=== PATIENT | female | born 1950 | race Caucasian/White ===

== ENCOUNTER 2023-11-18 11:13 | Emergency (ER) | payer OTHER, SELFPAY ==
[2023-11-18 11:26] VITALS: BP 131/77
[2023-11-18 11:47] LABS: % Basophils 0.7 % (0-2); % Eosinophils 0.8 % (0-6); % Immature Granulocytes 0.2 % (0-0.5); % Lymphocytes 27.8 % (20.5-51.1); % Monocytes 9.1 % (1.7-9.3); % Neutrophils 61.4 % (42.2-75.2); Absolute Eosinophils 0.1 10^3/uL (0-0.7); Absolute Lymphocytes 1.7 10^3/uL (1.2-3.4); Absolute Monocytes 0.6 10^3/uL (0.1-0.6); Absolute Neutrophils 3.8 10^3/uL (1.4-6.5); Hematocrit 47.5 % (37.0-47.0); Hemoglobin 17.3 g/dL (12.0-16.0); Mean Corp Hgb Conc. 36.4 g/dL (33.0-37.0); Mean Corpuscular Hgb 30.8 pg (27.0-31.0); Mean Corpuscular Volume 84.7 fL (81.0-99.0); Mean Platelet Volume 9.8 fL (7.4-10.4); Nucleated Red Blood Cells % 0 %; Platelet Count 373 10^3/uL (130-400); Red Blood Cell Count 5.61 10^6/uL (4.20-5.40); Red Cell Dist. Width 12.1 % (11.5-14.5); White Blood Cell Count 6.2 10^3/uL (4.8-10.8)
[2023-11-18 11:52] LABS: Urine Albumin Negative (Neg - Trace); Urine Bilirubin Negative (Negative); Urine Character Clear (Clear); Urine Color Yellow; Urine Glucose Negative (Negative); Urine Ketone Negative (Negative); Urine Leukocyte Negative (Negative); Urine Nitrite Negative (Negative); Urine Occult Blood 3+ (Negative); Urine Urobilinogen Negative (Neg - 1+); Urine pH 6.5 (5.0-9.0)
[2023-11-18 12:00] LABS: Lactic Acid 1.2 mmol/L (0.7-2.0)
[2023-11-18 12:01] LABS: ALT (SGPT) 31 U/L (0-35); AST (SGOT) 28 U/L (14-36); Alkaline Phosphatase 85 U/L (38-126); Blood Urea Nitrogen 18 mg/dl (7-17); Calcium 9.9 mg/dl (8.4-10.2); Carbon Dioxide 27 mmol/L (22-30); Chloride 91 mmol/L (98-107); Glucose 97 mg/dl (70-99); Potassium 3.9 mmol/L (3.5-5.1); Sodium 127 mmol/L (135-145); Total Bilirubin 1.4 mg/dl (0.2-1.3); eGFR > 60.00
[2023-11-18 12:02] LABS: Urine Squamous Cell 16-20 /LPF (Few)
[2023-11-18 12:03] LABS: Urine White Cell 0-2 /HPF (0-5)
[2023-11-18 12:04] LABS: Urine Bacteria Few (Negative)
--- NOTE | 2023-11-18 13:05 | ED.GENMED ---
History of Present Illness
<DAIANA Meraz - Last Filed: 11/20/23 01:39>
General
Chief Complaint: Urinary Symptoms
Source: patient
Time Seen by Provider: 11/18/23 13:02
Nursing documentation reviewed up to this point in time: agreed with
Travel History
Have you had any contact with someone who has COVID-19?: No
Do you have any symptoms of coronavirus? Fever > 100 degrees, chills, cough, shortness of breath, sore throat, loss of taste or smell, muscle aches, or headache?: No
History of Present Illness
History of Present Illness:
73 female presents to the ER with persistent urinary frequency urgency and lower abdominal pressure. Symptoms started on Sunday. She was in [place] at the time. She was started on Bactrim by urgent care however symptoms persisted and on
Sunday, 5 days ago went to a local ER in [place] however her urine was found to be negative at the time. She went back to another urgent care on 3 days ago and was started on Macrobid. She presents to the ER today with persistent
symptoms of pressure frequency urgency. She denies any fevers though she has nauseous with this. She denies any back pain. She does have a history of intermittent constipation but moved her bowels yesterday. She reports she is very anxious over
her symptoms.
Past History
<DAIANA Meraz - Last Filed: 11/20/23 01:39>
Past History
ED Past Medical History: HTN, Hypercholesterolemia and Hypothyroidism
ED Past Surgical History: Cholecystectomy and Gynecological (hysterectomy)
Social History
Personal:
Living: with family
Review of Systems
<DAIANA Meraz - Last Filed: 11/20/23 01:39>
Review of Systems
Allergies reviewed?: Yes
All Other Systems: ROS reviewed and negative except as documented in HPI and ROS
Constitutional: Reports no symptoms
Respiratory: Reports no symptoms
Cardiac: Reports no symptoms
ABD/GI: Reports abdominal pain and nausea; Denies vomiting or diarrhea
: Reports frequency and urgency
Musculoskeletal: Reports no symptoms; Denies back pain
Skin: Reports no symptoms
Hematologic/Lymphatic: Reports no symptoms
Psychiatric: Reports no symptoms
Phy Exam
<DAIANA Meraz - Last Filed: 11/20/23 01:39>
General Physical Exam
General Presentation: no apparent distress
General age: appears stated age
General Skin: warm and dry
General Habitus: normal
General Mental: alert
General Hydration: appears well hydrated
Gastrointestinal Exam
Gastrointestinal Exam: other (tenderness to suprapubic region )
Neurological Exam
Neurological Exam: alert and oriented x3
Musculoskeletal Exam
Musculoskeletal Exam: full ROM
Skin Exam
Skin Exam: normal color and warm/dry
Psychiatric Exam
Psychiatric Exam: normal mood/affect
Course
<DAIANA Meraz - Last Filed: 11/20/23 01:39>
Orders/Labs/Results
Orders:
Orders
11/18/23 11:37
Complete Blood Count/With Diff Urgent
Comprehensive Metabolic Panel Urgent
Lactic Acid Urgent
Urinalysis Reflex To Culture Urgent
Date Specimen was Collected: 11/18/23
Time Specimen was Collected: 11:28
Urine Microscopic Reflex Cult Urgent
Blood Culture Q30M
DOM Source: Blood/Venous
Specimen Description:
Comment: FROM 2 SEPARATE SITES
11/18/23 13:29
Blood Culture Q30M
DOM Source: Blood/Venous
Specimen Description:
Comment: FROM 2 SEPARATE SITES
11/18/23 14:05
IV Insert/Care/Rem.- Treatment PRN
11/18/23 14:11
CT Abd/Pel (IV only)-[facility] only Urgent
Comment:
Reason For Exam: lower abd pain tenderness/pain
11/18/23 17:50
Amoxicillin 875 mg/Clav 125 mg [Augmentin 875 mg/125 mg] 1 tablet PO NOW STA
Abnormal Lab Results
11/18/23
11:37
RBC 5.61 H 10^6/uL
(4.20-5.40)
Hgb 17.3 H g/dL
(12.0-16.0)
Hct 47.5 H %
(37.0-47.0)
Sodium 127 L mmol/L
(135-145)
Chloride 91 L mmol/L
(98-107)
BUN 18 H mg/dl
(7-17)
Total Bilirubin 1.4 H mg/dl
(0.2-1.3)
Ur Occult Blood Reflex 3+ A
(Negative)
Urine RBC 3-6 A /HPF
(0-2)
Urine Bacteria (Reflex) Few A
(Negative)
11/18/23 11:37
11/18/23 11:37
Vital Signs
Initial and Last Documented VS:
Initial Vital Signs
Temp Pulse Resp BP Pulse Ox
99.3 F 71 17 131/77 99
11/18/23 11:26 11/18/23 11:26 11/18/23 11:26 11/18/23 11:26 11/18/23 11:26
Last Documented Vital Signs
Temp Pulse Resp BP Pulse Ox
97.5 F 69 17 152/68 99
11/18/23 16:30 11/18/23 16:30 11/18/23 11:26 11/18/23 17:00 11/18/23 16:30
<Aleksandar Rubio Jr., PA-C - Last Filed: 11/20/23 17:54>
Orders/Labs/Results
Orders:
Orders
11/18/23 11:37
Complete Blood Count/With Diff Urgent
Comprehensive Metabolic Panel Urgent
Lactic Acid Urgent
Urinalysis Reflex To Culture Urgent
Date Specimen was Collected: 11/18/23
Time Specimen was Collected: 11:28
Urine Microscopic Reflex Cult Urgent
Blood Culture Q30M
DOM Source: Blood/Venous
Specimen Description:
Comment: FROM 2 SEPARATE SITES
11/18/23 13:29
Blood Culture Q30M
DOM Source: Blood/Venous
Specimen Description:
Comment: FROM 2 SEPARATE SITES
11/18/23 14:05
IV Insert/Care/Rem.- Treatment PRN
11/18/23 14:11
CT Abd/Pel (IV only)-[facility] only Urgent
Comment:
Reason For Exam: lower abd pain tenderness/pain
11/18/23 17:50
Amoxicillin 875 mg/Clav 125 mg [Augmentin 875 mg/125 mg] 1 tablet PO NOW STA
Abnormal Lab Results
11/18/23
11:37
RBC 5.61 H 10^6/uL
(4.20-5.40)
Hgb 17.3 H g/dL
(12.0-16.0)
Hct 47.5 H %
(37.0-47.0)
Sodium 127 L mmol/L
(135-145)
Chloride 91 L mmol/L
(98-107)
BUN 18 H mg/dl
(7-17)
Total Bilirubin 1.4 H mg/dl
(0.2-1.3)
Ur Occult Blood Reflex 3+ A
(Negative)
Urine RBC 3-6 A /HPF
(0-2)
Urine Bacteria (Reflex) Few A
(Negative)
11/18/23 11:37
11/18/23 11:37
Vital Signs
Initial and Last Documented VS:
Initial Vital Signs
Temp Pulse Resp BP Pulse Ox
99.3 F 71 17 131/77 99
11/18/23 11:26 11/18/23 11:26 11/18/23 11:26 11/18/23 11:26 11/18/23 11:26
Last Documented Vital Signs
Temp Pulse Resp BP Pulse Ox
97.5 F 69 17 152/68 99
11/18/23 16:30 11/18/23 16:30 11/18/23 11:26 11/18/23 17:00 11/18/23 16:30
<Aleksandar Rubio Jr., PA-C - Last Filed: 11/20/23 17:54>
MDM/Problems Addressed
MDM/Problems Addressed:
Joe Rubio PA-C ///assumed care at 1630 with plans for follow-up on CT results. CT showing diverticulitis. Could potentially be explaining patient's symptoms considering this is in proximity to the bladder causing some urinary symptoms. Concerning
this plan for with Augmentin and proper progression of diet with close outpatient follow-up. Otherwise patient appears stable in no distress. She does claim that she has been having significant anxiety and previously has had significant
improvement with Xanax at home. The risks of taking this medication were thoroughly explained to the patient was given a few doses to use as needed for significant symptoms at home. Will follow-up closely as an outpatient for further monitoring
and treatment of this. Return precautions given.
<DAIANA Meraz - Last Filed: 11/20/23 01:39>
*Critical Care Note
Total Time (30-74mins, 75-104mins- exclusive of procedures): Not Applicable
ED Attending Note
<DAIANA Meraz - Last Filed: 11/20/23 01:39>
-
Portions of this chart may have been created with voice recognition software.� Occasional wrong word or��sound alike� substitutions may have occurred due to the inherent limitations of voice recognition software.
Discharge Plan
Departure
Patient Disposition: Home (Routine Discharge)
Date of Disposition: 11/18/23
Time of Disposition: 17:58
Patient with high blood pressure during this ER visit?: Yes
Condition: Fair
Covid-19: Not Applicable
Discharge Problem:
Acute hyponatremia, Diverticulitis
Instructions: Diverticulitis (DC), BLOOD PRESSURE
Prescriptions:
New
alprazolam [Xanax] 0.25 mg tablet
0.25 mg PO HS PRN (Reason: Sleep) Qty: 3 0RF
No Action
dorzolamide-timolol (PF) [Cosopt (PF)] 1 EACH dropperette
1 drp DROP BID
levothyroxine 75 MCG tablet
75 mcg PO DAILY
Patient Comments:
takes synthroid
Sertraline HCl Tablet
50 mg PO DAILY
lisinopril 10 MG tablet
10 mg PO DAILY Qty: 30 0RF
Lumigan 0.01 % Drops
1 drp OPHTHALMIC (EYE) QPM
multivitamin Tablet
1 tab PO DAILY
Elderberry
1 tab PO DAILY
Vitamin C
1 tab PO DAILY
Vitamin D3
1 tab PO DAILY
magnesium
1 tab PO DAILY
turmeric
1 tab PO DAILY
vitamin K2
1 tab PO DAILY
zinc
1 tab PO DAILY
fiber
1 tab PO DAILY
diphenhydramine HCl [Benadryl] 25 mg Capsule
25 mg PO HS PRN (Reason: sleep)
amoxicillin-pot clavulanate [Augmentin] 875-125 mg Tablet
1 tab PO BID
Referrals:
Antolin Garza MD [Family Provider] -
Activity Restrictions/Additional Instructions:
As discussed your sodium was low here in the ER. Restrict fluid to 50 ounces per day and please call your family doctor tomorrow for reevaluation. You will need this level rechecked within the next week. You are additionally found to have
diverticulitis. Please take Augmentin twice daily and progress your diet over the next few days. Please follow close with your primary care doctor over the next few days as well. Return to the emergency department any worsening, new or concerning
symptoms
Interventions
Interventions:
*Risk Screen - Suicide Last Done: 11/18/23 13:13
*General Assessment Last Done: 11/18/23 18:18
*Neglect/Abuse Screening Last Done: 11/18/23 13:13
ED- Fall Risk Assessment Last Done: 11/18/23 13:14
*ED COVID-19 Vaccine History Last Done: 11/18/23 11:27
*Nursing Disposition Last Done: 11/18/23 18:18
ED-Female Genitourinary Assessment Last Done: 11/18/23 14:18
Discharge Date and Time
Discharge Date/Time: 11/18/23 18:18
[2023-11-18 13:13] VITALS: BP 148/67; BMI 24.1
[2023-11-18 14:00] VITALS: BP 115/101
[2023-11-18 16:27] VITALS: BP 155/74
[2023-11-18 16:30] VITALS: BP 155/74
[2023-11-18 17:00] VITALS: BP 152/68
[2023-11-18] MEDS: AUGMENTIN 875 MG/125 MG 1 TABLET PO (18:08)
== END 2023-11-18 18:18 | disposition home or self-care (01) ==
LOC: EMR 11:13
PROVIDERS: EMERGENCY PHYSICIAN Emergency Medicine; FAMILY PHYSICIAN Family Medicine
DX: E87.1 Hypo-osmolality and hyponatremia (principal); K57.92 Diverticulitis of intestine, part unspecified, without perforation or abscess without bleeding; I10 Essential (primary) hypertension; E78.00 Pure hypercholesterolemia, unspecified; E03.9 Hypothyroidism, unspecified; F41.9 Anxiety disorder, unspecified; Z90.49 Acquired absence of other specified parts of digestive tract; Z90.710 Acquired absence of both cervix and uterus
CPT/HCPCS: 99284; 74177; 80053; 81003; 81015; 83605; 85025; 87040; Q9967

== ENCOUNTER 2024-03-05 18:31 | Inpatient (IN) | payer OTHER, SELFPAY ==
[2024-03-05 14:25] VITALS: BP 120/68
[2024-03-05 14:54] LABS: % Basophils 0.5 % (0-2); % Eosinophils 0.3 % (0-6); % Immature Granulocytes 0.2 % (0-0.5); % Lymphocytes 18.4 % (20.5-51.1); % Monocytes 9.6 % (1.7-9.3); Absolute Basophils 0.1 10^3/uL (0-0.2); Absolute Lymphocytes 1.7 10^3/uL (1.2-3.4); Absolute Monocytes 0.9 10^3/uL (0.1-0.6); Absolute Neutrophils 6.5 10^3/uL (1.4-6.5); Hematocrit 42.2 % (37.0-47.0); Hemoglobin 15.3 g/dL (12.0-16.0); Mean Corp Hgb Conc. 36.3 g/dL (33.0-37.0); Mean Corpuscular Hgb 30.7 pg (27.0-31.0); Mean Corpuscular Volume 84.7 fL (81.0-99.0); Mean Platelet Volume 9.6 fL (7.4-10.4); Nucleated Red Blood Cells % 0 %; Platelet Count 349 10^3/uL (130-400); Red Blood Cell Count 4.98 10^6/uL (4.20-5.40); Red Cell Dist. Width 11.6 % (11.5-14.5); Urine Albumin Trace (Neg - Trace); Urine Bilirubin 3+ (Negative); Urine Character Clear (Clear); Urine Color Amber; Urine Glucose Negative (Negative); Urine Ketone Trace (Negative); Urine Leukocyte Trace (Negative); Urine Nitrite Positive (Negative); Urine Occult Blood 2+ (Negative); Urine Urobilinogen 4+ (Neg - 1+); White Blood Cell Count 9.2 10^3/uL (4.8-10.8)
[2024-03-05 15:06] LABS: ALT (SGPT) 21 U/L (0-35); AST (SGOT) 22 U/L (14-36); Albumin 4.5 g/dl (3.5-5.0); Alkaline Phosphatase 83 U/L (38-126); Blood Urea Nitrogen 18 mg/dl (7-17); Calcium 9.8 mg/dl (8.4-10.2); Carbon Dioxide 28 mmol/L (22-30); Chloride 90 mmol/L (98-107); Glucose 137 mg/dl (70-99); Potassium 3.5 mmol/L (3.5-5.1); Sodium 125 mmol/L (135-145); Total Bilirubin 0.7 mg/dl (0.2-1.3); Total Protein 7.3 g/dl (6.3-8.2); eGFR > 60.00
[2024-03-05 15:18] LABS: Urine Urothelial Cell 0-2 /LPF (FEW)
[2024-03-05 15:19] LABS: Urine Bacteria Few (Negative)
[2024-03-05 15:20] LABS: Urine Squamous Cell 16-20 /LPF (Few)
--- NOTE | 2024-03-05 16:33 | ED.GENMED ---
History of Present Illness
General
Chief Complaint: Weakness
Source: patient and spouse
Time Seen by Provider: 03/05/24 16:04
Travel History
Have you had any contact with someone who has COVID-19?: No
Do you have any symptoms of coronavirus? Fever > 100 degrees, chills, cough, shortness of breath, sore throat, loss of taste or smell, muscle aches, or headache?: No
History of Present Illness
History of Present Illness:
73-year-old female with past medical history of hypertension, hyperlipidemia, hypothyroidism, relatively newly diagnosed interstitial cystitis presenting to the emergency department for 4 to 5 weeks of generalized fatigue, weakness and generally
feeling unwell. Patient has been seen by her primary care for this and the only lab that she notes that was somewhat abnormal was her thyroid and patient had her Synthroid increased. She was also diagnosed with a urinary tract infection about a
week ago and has been taking Macrobid and is supposed to be completing this medication tomorrow however she states since starting the Macrobid she feels as if now has more urinary urgency. She also notes increased anxiety and difficulty sleeping
for which she was prescribed Xanax nightly and had been taking BuSpar but was taken off of the BuSpar and started on Lexapro. She denies any fevers, chills, rigors, nausea, vomiting, abdominal pain, chest pain, shortness of breath or any other
concerns.
Past History
Past History
ED Past Medical History: HTN, Hypercholesterolemia, Hypothyroidism and Psychiatric
ED Past Surgical History: Cholecystectomy, Gynecological (hysterectomy) and Other
Social History
Tobacco: Non-smoker
Alcohol: None
Drug: None
Personal:
Living: with family
Review of Systems
Review of Systems
All Other Systems: ROS reviewed and negative except as documented in HPI and ROS
Phy Exam
Physical Exam
Physical Exam:
GENERAL: Alert , in no apparent distress
EYE: clear conjunctiva b/l
HEAD: NCAT
ENT: o/p clr, mmm.
CARDIAC: Regular rate and rhythm .
LUNGS: Clear breath sounds bilaterally, no acute respiratory distress, no wheezes/rales/rhonchi
ABDOMEN: Soft, without focal tenderness, no r/g, no cvat
NEUROLOGICAL: Alert and oriented
SKIN: Warm and dry, skin intact.
MUSCULOSKELETAL: No edema, well perfused.
PSYCH: Normal and appropriate interaction.
Scores
Heart Failure Risk
Heart Failure Risk Score: Not Applicable
Heart Score for Chest Pain Patients
STEMI patient?: Not applicable
Withdrawal Assessment of Alcohol
Withdrawal Assessment Completed?: Not applicable
Course
Orders/Labs/Results
Orders:
Orders
03/05/24 14:40
CMP [Comprehensive Metabolic Panel] Urgent
Complete Blood Count/With Diff Urgent
Osmolality, Random Urine Urgent
Date Specimen was Collected: 03/05/24
Time Specimen was Collected: 14:28
Serum Osmolality Urgent
Comment: ADD ON
TSH Reflex To Free T4 Urgent
Comment: ADD ON
Uric Acid Urgent
Comment: ADD ON
Urinalysis Reflex To Culture Urgent
Date Specimen was Collected: 03/05/24
Time Specimen was Collected: 14:28
Urine Microscopic Reflex Cult Urgent
Urine Sodium Urgent
Date Specimen was Collected: 03/05/24
Time Specimen was Collected: 14:28
Urine Culture Urgent
DOM Source: U
Specimen Description:
Date Specimen was Collected: 03/05/24
Time Specimen was Collected: 14:28
03/05/24 16:31
Add On- LAB Urgent
Tests Added?: serum osmolarity
Urine Sodium Urgent
03/05/24 16:53
Add On- LAB Urgent
Tests Added?: urine osmolarity, urine sodium
03/05/24 16:54
Add On- LAB Routine
Tests Added?: serum uric acid
03/05/24 18:01
Add On- LAB Urgent
Tests Added?: TSH w/Reflex
03/05/24 18:14
Admit/Transfer Patient As Directed
Co-Sign Provider:
Level of Care: Inpatient admission
Assign to:: Telemetry
Physician / Group: [place]
Diagnosis: Hyponatremia
Reason for Telemetry: Arrhythmia
Date to Stop Telemetry: 03/08/24
Time to Stop Telemetry: 11:00
Reason for Hospitalization: sodium management
Expected length of stay greater than two midnights?: Yes
ELOS- Estimated Length of Stay in days: 3
I certify the patient meets the requirements for IP care: Yes
03/05/24 18:16
Code Status As Directed
Resuscitation Status: Full Code
03/08/24 11:00
DC Protocol for Telemetry ONCE
Abnormal Lab Results
03/05/24
14:40
Absolute Monos (auto) 0.9 H 10^3/uL
(0.1-0.6)
Lymphocytes % 18.4 L %
(20.5-51.1)
Monocytes % 9.6 H %
(1.7-9.3)
Sodium 125 L mmol/L
(135-145)
Chloride 90 L mmol/L
(98-107)
BUN 18 H mg/dl
(7-17)
Glucose 137 H mg/dl
(70-99)
Serum Osmolality 273 L mOsm/kg
(275-300)
Urine Ketones Trace A
(Negative)
Ur Occult Blood Reflex 2+ A
(Negative)
Urine Nitrite (Reflex) Positive A
(Negative)
Urine Bilirubin 3+ A
(Negative)
Urine Urobilinogen 4+ A
(Neg - 1+)
Leukocyte Esterase Rfl Trace A
(Negative)
Urine RBC 7-10 A /HPF
(0-2)
Urine Bacteria (Reflex) Few A
(Negative)
Urine Sodium 11 L mmol/L
(30-90)
03/05/24 14:40
03/05/24 14:40
Vital Signs
Initial and Last Documented VS:
Initial Vital Signs
Temp Pulse Resp BP Pulse Ox
98.1 F 72 18 120/68 95
03/05/24 14:25 03/05/24 14:25 03/05/24 14:25 03/05/24 14:25 03/05/24 14:25
Last Documented Vital Signs
Temp Pulse Resp BP Pulse Ox
98.1 F 65 21 120/68 98
03/05/24 14:25 03/05/24 17:30 03/05/24 17:30 03/05/24 14:25 03/05/24 17:30
MDM/Problems Addressed
Differential Diagnosis Includes:
Urinary tract infection, less concern for pyelonephritis given no fevers or vomiting, electrolyte derangement, acute kidney injury, anxiety
MDM/Problems Addressed:
73-year-old female presenting emergency department for a multitude of concerns, patient's biggest concern today seems to be her generalized weakness and fatigue as well as her overall anxiety. Labs have been initiated in triage and patient has a
sodium level of 125. She also has nitrite positive urine and trace leukocytes however only 3-5 WBCs. There increased squamous cells and few bacteria likely signifying contamination as well as patient's history of interstitial cystitis is the
likely cause for the abnormal nitrites and leukocyte. She has no fever, no leukocytosis so will defer antibiotics at this time. I suspect patient's hyponatremia is likely secondary to the newly prescribed SSRI. Given her symptoms and hyponatremia
will admit. Will notify hospitalist team as well as nephrology to consult. Antibiotics deferred to hospitalist.
Chronic conditions affecting care: Psychiatric illness and Other (Hypothyroid)
*Pulse Oximetry
Patient hypoxic: no
*Critical Care Note
Total Time (30-74mins, 75-104mins- exclusive of procedures): Not Applicable
Data Reviewed
Review of Other/Old Records Reveals: Labs and Records
Source: patient and spouse
Patient Management
Discussion with other providers: Hospitalist and Logger All Round
Escalation/DeEscalation of care consider admission/obs:
Hospitalist team was notified and nephrology will consult on the patient. Patient may also benefit from psychiatry consultation given her continued anxiety despite medication.
ED Attending Note
-
Portions of this chart may have been created with voice recognition software.� Occasional wrong word or��sound alike� substitutions may have occurred due to the inherent limitations of voice recognition software.
Discharge Plan
Departure
Patient Disposition: Admit
Date of Disposition: 03/05/24
Time of Disposition: 16:33
Presentation/result/management discussed w/ accepting MD/DO: Hospitalist
Discharge Problem:
Acute hyponatremia, Chronic interstitial cystitis
Interventions
Interventions:
*Risk Screen - Suicide Last Done: 03/05/24 14:25
*General Assessment Last Done: 03/05/24 14:25
*Neglect/Abuse Screening Last Done: 03/05/24 19:13
ED- Fall Risk Assessment Last Done: 03/05/24 19:14
*ED COVID-19 Vaccine History Last Done: 03/05/24 14:25
ED- Cardiac Assessment Last Done: 03/05/24 19:14
ED- Neurological Assessment Last Done: 03/05/24 19:14
ED- Pulmonary Assessment Last Done: 03/05/24 19:14
--- NOTE | 2024-03-05 16:46 | W.CON.NEPH ---
Consultation
-
Date/Time Consultation Requested: 03/05/24 1630
Date/Time Consultation Performed: 03/05/24 1645
Requesting Provider: Roshan English
Performing Provider: jeff Valle
Reason for Consultation: Hypoantremia
Medical History
-
Chief Complaint: Gen weakness
History of Present Illness:
This is a 73-year-old female who has history of hypertension on lisinopril, HCTZ, hyperlipidemia, hypothyroidism on levothyroxine, interstitial cystitis saw Dr Lee recently and underwent cystoscopy also found ro have rectocele, anxiety with
p.rflaquita alprazolam who saw her PCP on 02/28 and started on Lexapro. he sodium was at 135 on 02/25. She was previously admitted at in Oct for diverticulitis and during that time had hypovolemic hyponatremia improved with IVF. For last several weeks
she was feeling weak. But in last 1week symptoms worsened associated with lack of appetite. She was drinking upto 45ounces of fluids/day but not eating well with nausea. She was started on abx for suspected UTI by PCP few days ago, has 1more day to
complete Macrobid. She still with some pain in bladder, associated with constipation. She was taking advil regularly for pain control. she presented to ER today with increasing gen weakness and fatigue to the point unable to get out of bed. Feels
not steady in walking, dizzy. Sodium noted to be 125, hence nephrology consulted. no CP or sob, fever, or cough.
Past Medical History
Hypertension, hyperlipidemia,
hypothyroidism, glaucoma, diverticulitis and diverticulosis,
history of cholecystectomy and hysterectomy.
Social History
Nonsmoker and has occasional alcohol use
Tobacco: Non-Smoker
Alcohol: Occasional
Living: With Family
Family History
Family History: Not Pertinent
Allergies / Home Medications
Allergy/AdvReac Type Severity Reaction Status Date / Time
bupropion [From Wellbutrin] Allergy Rash Verified 03/05/24 14:25
levofloxacin [From Levaquin] AdvReac anxiety Verified 03/05/24 14:25
�Medication �Instructions �Recorded �Confirmed �Type
dorzolamide-timolol (PF) 2 %-0.5 % 1 drp DROP BID Eye Condition 07/03/13 11/20/23 History
eye drops in a dropperette (Cosopt
(PF))
levothyroxine 75 mcg tablet 75 mcg PO DAILY Thyroid 04/11/20 11/20/23 History
Sertraline HCl 50 mg PO DAILY Mental 04/12/20 11/20/23 History
Health/Anxiety
lisinopril 10 mg tablet 10 mg PO DAILY #30 tabs 04/16/20 11/20/23 Rx
Elderberry 1 tab PO DAILY Supplement 04/03/23 11/20/23 History
Vitamin C 1 tab PO DAILY Supplement 04/03/23 11/20/23 History
Vitamin D3 1 tab PO DAILY Supplement 04/03/23 11/20/23 History
bimatoprost 0.01 % eye drops 1 drp ophthalmic (eye) QPM Eye 04/03/23 11/20/23 History
(Lumigan) Condition
fiber 1 tab PO DAILY Supplement 04/03/23 11/20/23 History
magnesium 1 tab PO DAILY Supplement 04/03/23 11/20/23 History
multivitamin 1 tab PO DAILY Supplement 04/03/23 11/20/23 History
turmeric 1 tab PO DAILY Supplement 04/03/23 11/20/23 History
vitamin K2 1 tab PO DAILY Supplement 04/03/23 11/20/23 History
zinc 1 tab PO DAILY Supplement 04/03/23 11/20/23 History
alprazolam 0.25 mg tablet (Xanax) 0.25 mg PO HS PRN Sleep #3 tabs 11/18/23 11/20/23 Rx
diphenhydramine HCl 25 mg capsule 25 mg PO HS PRN sleep 11/18/23 11/20/23 History
(Benadryl)
amoxicillin 875 mg-potassium 1 tab PO BID Infection #14 tabs 11/21/23 Rx
clavulanate 125 mg tablet
Review of Systems
-
All complete 12 point ORS have been inquired and found negative other than stated in HPI
Physical Exam
Vital Signs
Vital Signs
Temp Pulse Resp BP Pulse Ox
98.1 F 72 18 120/68 95
03/05/24 14:25 03/05/24 14:25 03/05/24 14:25 03/05/24 14:25 03/05/24 14:25
Lab Results
WBC 9.2 10^3/uL (4.8-10.8) 03/05/24 14:40
RBC 4.98 10^6/uL (4.20-5.40) 03/05/24 14:40
Hgb 15.3 g/dL (12.0-16.0) 03/05/24 14:40
Hct 42.2 % (37.0-47.0) 03/05/24 14:40
Plt Count 349 10^3/uL (130-400) 03/05/24 14:40
Sodium 125 mmol/L (135-145) L 03/05/24 14:40
Potassium 3.5 mmol/L (3.5-5.1) 03/05/24 14:40
Chloride 90 mmol/L (98-107) L 03/05/24 14:40
Carbon Dioxide 28 mmol/L (22-30) 03/05/24 14:40
BUN 18 mg/dl (7-17) H 03/05/24 14:40
Creatinine 0.8 mg/dL (0.6-1.0) 03/05/24 14:40
eGFR > 60.00 03/05/24 14:40
Glucose 137 mg/dl (70-99) H 03/05/24 14:40
Calcium 9.8 mg/dl (8.4-10.2) 03/05/24 14:40
Albumin 4.5 g/dl (3.5-5.0) 03/05/24 14:40
Physical Exam
General: Awake, Alert, Oriented, AOx3, No Distress and Nontoxic
HEENT: EOMI, Anicteric, Neck Supple, No JVD and No Thyromegaly
Respiratory: Clear, Normal Excursion and Nonlabored Respirations
Cardiac: S1/S2 and Regular Rate/Rhythm
Breast: Deferred by me
Abdomen: Soft, Nontender and Nondistended
Musculoskeletal: No Cyanosis and No Edema
Skin: No Rash
Neuro: Nonfocal/Grossly Intact
Psych: Mood/afflect pleasant, Insight/judgement good and Appropriate
Data Reviewed
-
Radiology: Report Reviewed by me and Discussed with Patient
Labs: Labs Reviewed by me, Discussed with Patient and Discussed with Family
Assessment/Plan
-
Assessment:
Hyponatremia.
UTI
History of anxiety.
Hypertension.
Hyperlipidemia.
Hypothyroidism.
Interstitial cystitis
h/o diverticulitis
constipation
Plan:
A/w gen weakness, fatigue sodium found at 125, suspect mildly symptomatic
HYponatremia suspect from HCTZ+recent SSRI, NSAIDs use, check U osmo, u na
she seem euvolemic with stable BP
consider 3% saline, check U acid
check TSH
fluids restriction 40ounces/day
no further SSRI or HCTZ
d/w pt
--- NOTE | 2024-03-05 17:27 | W.PN.UPDATE ---
Update Note
Progress Note Update
I saw and examined the patient.
The MOIZ Guadarrama's note was reviewed and I agree with the note.
Comment: 73 y/o F with hx of interstitial cystitis, HTN, hiatal hernia, Hypothyroidism, anxiety/depression presents to ER for 4-5 week history of generalized fatigue weakness and feeling unwell. She has seen her PCP who upper her thyroid medication
and treated a UTI with Macrobid (to complete tomorrow). More recently she was prescribed Xanan for anxiety and switched from Buspar to Lexapro. She offers no other complaints currently. in ER, found to have sodium 125 and admitted for further
evaluation.
Physical Exam
General: Awake, Alert, Oriented, AOx3, No Distress and Nontoxic
HEENT: EOMI, Anicteric, Neck Supple, No JVD and No Thyromegaly
Respiratory: Clear, Normal Excursion and Nonlabored Respirations
Cardiac: S1/S2 and Regular Rate/Rhythm
Breast: Deferred by me
Abdomen: Soft, Nontender and Nondistended
Musculoskeletal: No Cyanosis and No Edema
Skin: No Rash
Neuro: Nonfocal/Grossly Intact
Psych: Mood/affect pleasant, Insight/judgement good and Appropriate
Assessment:
symptomatic acute on chronic Hyponatremia
- possibly related to SSRI, HCTZ vs other
- check hyponatremia workup including osms, urine studies, TSH, Cortisol, uric acid
- hold HCTZ/SSRI
- Nephrology consulted; considering 3% saline
Recent UTI
Underlying overactive bladder
Hx of interstitial cystitis
- treated with Macrobid; was to complete course tomorrow; will continue
- repeat UA and culture here while holding Abx
- hold Myrbetriq
Essential HTN
- hold HCTZ
- ok for resuming CRYSTAL
Hypothyroidism
- check TSH/reflex T4
- continue LT4 replacement
Anxiety/Depression
- ok for Xanax prn
- reportedly off Buspar
- hold Lexapro
Glaucoma - continue home eye drops
DVT ppx: Lovenox
Code: Full
[2024-03-05 17:45] LABS: Uric Acid 5.4 mg/dl (2.5-6.2)
[2024-03-05 17:48] LABS: Osmolality Serum 273 mOsm/kg (275-300)
[2024-03-05 17:53] LABS: Urine Sodium 11 mmol/L (30-90)
[2024-03-05 18:05] LABS: Osmolality Urine 312 mOsm/kg (300-900)
--- NOTE | 2024-03-05 18:19 | HPS.HSE ---
Addendum entered and electronically signed by Tavares Shook MD 03/05/24 18:23:
see my addendum in the update note
Original Note:
Family Physician
-
Family Physician: Antolin Garza
Chief Complaint
-
Weakness
History of Present Illness
This is a 73 year old female with a past medical history of hypertension, hypothyroidism, anxiety, and interstitial cystitis who presents for worsening fatigue and weakness x 1 week. She states she has had ongoing fatigue x 1 month that has been
worsening since starting Lexapro on 02/28. She also noticed a decrease in appetite and nausea associated with eating. She was recently started on Macrobid on 02/27 for a UTI. She denies changes in her Synthroid and has been taking 75 mcg. She denies
fevers, sweats or chills.
Medical History
Past Medical History
Past Medical History: Reports Other
Additional Past Medical History:
Essential Hypertension
Hyperlipidemia
Hypothyroidism
Generalized Anxiety Disorder
Interstitial cystitis
Past Surgical History: Reports Other
Additional Past Surgical History:
Cholecystectomy
Hysterectomy
Social History
Tobacco: Non-smoker
Alcohol: Occasional
Family History
Family History: Not pertinent
Allergies / Home Medications
Allergies reflects when Allergies were last updated in [facility] ([facility]
Home Medications with original date entered in [facility] ([facility])
Allergy/Medication List:
Allergies
Allergy/AdvReac Type Severity Reaction Status Date / Time
bupropion [From Wellbutrin] Allergy Rash Verified 03/05/24 14:25
levofloxacin [From Levaquin] AdvReac anxiety Verified 03/05/24 14:25
Home Medications
dorzolamide-timolol (PF) 2 %-0.5 % eye drops in a dropperette (Cosopt (PF)) 1 drp LEFT EYE BID Eye Condition 07/03/13
levothyroxine 75 mcg tablet 75 mcg PO DAILY Thyroid 04/11/20
bimatoprost 0.01 % eye drops (Lumigan) 1 drp BOTH EYES QPM Eye Condition 04/03/23
calcium polycarbophil 625 mg tablet (FiberCon) 625 mg PO DAILY Supplement ##0 04/03/23
cholecalciferol (vitamin D3) 25 mcg (1,000 unit) tablet (Vitamin D3) 25 mcg PO DAILY Supplement ##0 04/03/23
elderberry fruit 350 mg capsule 350 mg PO DAILY Supplement ##0 04/03/23
magnesium malate, chelate 250 mg PO DAILY Supplement ##0 04/03/23
turmeric 400 mg capsule 400 mg PO DAILY Supplement ##0 04/03/23
aloe vera 25 mg capsule 25 mg PO DAILY 03/05/24
alprazolam 0.25 mg tablet (Xanax) 0.25 mg PO HSPRN PRN sleep 03/05/24
brimonidine 0.1 % eye drops 1 drp LEFT EYE BID 03/05/24
buspirone 10 mg tablet 10 mg PO Q48H 03/05/24
escitalopram oxalate 5 mg tablet (Lexapro) 5 mg PO DAILY 03/05/24
estradiol 0.01% (0.1 mg/gram) vaginal cream (Estrace) 1 appful vaginal TUSA 03/05/24
lisinopril 20 mg-hydrochlorothiazide 12.5 mg tablet 1 tab PO DAILY 03/05/24
mirabegron 25 mg tablet,extended release 24 hr (Myrbetriq) 25 mg PO DAILY 03/05/24
nitrofurantoin monohydrate/macrocrystals 100 mg capsule (Macrobid) 100 mg PO BID 03/05/24
phenazopyridine 200 mg tablet 200 mg PO TIDPRN PRN uti 03/05/24
Review of Systems
-
A 12 point ROS was completed and negative except as noted: Yes
Constitutional: Denies Fever or Chills
Respiratory: Denies Cough or Trouble Breathing
Cardiac: Denies Chest Pain or Palpitations
Physical Exam
Vital Signs
Vital Signs
Temp Pulse Resp BP Pulse Ox
98.1 F 72 18 120/68 95
03/05/24 14:25 03/05/24 14:25 03/05/24 14:25 03/05/24 14:25 03/05/24 14:25
Physical Exam
General: Comfortable and Conversant
HEENT: Anicteric and Moist mucous membranes
Respiratory: Clear and Non Labored Respirations
Cardiac: S1/S2 and Regular Rhythm
GI: Soft and Non Tender
Rectal: Deferred by Provider
Musculoskeletal: No Clubbing, No Cyanosis and No Edema
Skin: Warm and Dry
Neuro: Awake, Alert, Oriented and Nonfocal/grossly intact
Psych: Calm
Laboratory Results
-
03/05/24 14:40
03/05/24 14:40
Laboratory Results
Total Bilirubin 0.7 mg/dl (0.2-1.3) 03/05/24 14:40
AST 22 U/L (14-36) 03/05/24 14:40
ALT 21 U/L (0-35) 03/05/24 14:40
Alkaline Phosphatase 83 U/L (38-126) 03/05/24 14:40
Data Reviewed
-
Lab Data: Labs Reviewed by me
Old Records: Reviewed
Impression/Plan
-
Acute Hyponatremia, likely related Lexapro and HCTZ
-Appreciate Nephrology
-Stop Lexapro and HCTZ
-Continue fluid restriction
-Check TSH
Essential Hypertension
-Continue Lisinopril
-Monitor BP closely with stopping HCTZ
Hypothyroidism
-Continue Synthroid
Generalized Anxiety Disorder
-Stop Lexapro
-Continue BuSpar and Xanax
Interstitial cystitis
-Complete previously prescribed coarse of Macrobid
-Continue Myrbetriq
DVT proph: Lovenox
Code Status: Full Code
[2024-03-05 19:03] LABS: TSH Reflex To Free T4 1.56 uIU/ml (0.47-4.68)
[2024-03-05 19:12] VITALS: BMI 23.5
[2024-03-05] MEDS: SODIUM CHLORIDE 3% 250 IV (19:27)
[2024-03-05 19:34] VITALS: BP 148/66
[2024-03-05 19:36] VITALS: BP 148/66
[2024-03-05 20:15] VITALS: BP 169/79; BMI 22.4
[2024-03-05] MEDS: ALPHAGAN P 0.1% EYE DROPS 1 DROP LEFT EYE (22:25)
[2024-03-05] MEDS: MACROBID 100 MG PO (22:25)
[2024-03-05 23:40] VITALS: BP 139/65
[2024-03-06] VITALS (7 sets, daily range): BP systolic 120–147; BP diastolic 55–76; PULSE 69; O2SAT 98; BMI 22.4
[2024-03-06] MEDS: XANAX 0.25 MG PO ×2 (00:34→21:49)
[2024-03-06] MEDS: LUMIGAN 0.01% 1 DROP BOTH EYES ×2 (00:34→21:37)
[2024-03-06] MEDS: SYNTHROID 75 MCG PO ×2 (00:34→21:38)
[2024-03-06] MEDS: COSOPT EYE DROPS 1 DROP LEFT EYE ×3 (00:35→21:37)
[2024-03-06 01:10] LABS: Urine Sodium 34 mmol/L (30-90)
[2024-03-06 01:34] LABS: Blood Urea Nitrogen 16 mg/dl (7-17); Calcium 9.3 mg/dl (8.4-10.2); Carbon Dioxide 28 mmol/L (22-30); Chloride 94 mmol/L (98-107); Estimated Creatinine Clearance 64 ml/min; Glucose 95 mg/dl (70-99); Potassium 2.9 mmol/L (3.5-5.1); Sodium 127 mmol/L (135-145); eGFR > 60.00
--- NOTE | 2024-03-06 02:03 | W.PN.UPDATE ---
Update Note
Progress Note Update
K 2.9, kcl 40 mEq PO x1 ordered.
--- NOTE | 2024-03-06 02:30 | PTCARENOTE ---
@0200;Instructed DAIANA;Ed with 0100 BMP results : K+:2.9 and NA+:127. Potassium 40meq po ordered and administered.IV Sodium 3% @20ml/HR continues to infuse.
[2024-03-06] MEDS: KCL 40 MEQ PO (02:40)
[2024-03-06 06:10] LABS: Hemoglobin 14.1 g/dL (12.0-16.0); Mean Corp Hgb Conc. 36.2 g/dL (33.0-37.0); Mean Corpuscular Hgb 30.7 pg (27.0-31.0); Mean Platelet Volume 9.7 fL (7.4-10.4); Platelet Count 299 10^3/uL (130-400); Red Blood Cell Count 4.59 10^6/uL (4.20-5.40); Red Cell Dist. Width 11.6 % (11.5-14.5); White Blood Cell Count 6.6 10^3/uL (4.8-10.8)
[2024-03-06 06:50] LABS: Blood Urea Nitrogen 15 mg/dl (7-17); Calcium 9.2 mg/dl (8.4-10.2); Carbon Dioxide 27 mmol/L (22-30); Chloride 98 mmol/L (98-107); Estimated Creatinine Clearance 64 ml/min; Glucose 83 mg/dl (70-99); Potassium 3.8 mmol/L (3.5-5.1); Sodium 130 mmol/L (135-145); eGFR > 60.00
[2024-03-06] MEDS: VITAMIN D3 (cholecalciferol) 25 MCG PO (08:02)
[2024-03-06] MEDS: FIBERCON 625 MG PO (08:02)
[2024-03-06] MEDS: BUSPAR 10 MG PO (08:02)
[2024-03-06] MEDS: ALPHAGAN P 0.1% EYE DROPS 1 DROP LEFT EYE ×2 (08:02→21:36)
[2024-03-06] MEDS: MACROBID 100 MG PO ×2 (08:02→21:37)
[2024-03-06] MEDS: DETROL LA 2 MG PO (08:02)
--- NOTE | 2024-03-06 13:29 | W.PN.NEPH.PH ---
Today's Communication / Plan
-
maintain FR, labs later today
Assessment/Plan
-
Assessment:
Hyponatremia.
UTI
History of anxiety.
Hypertension.
Hyperlipidemia.
Hypothyroidism.
Interstitial cystitis
h/o diverticulitis
constipation
Plan:
A/w gen weakness, fatigue sodium found at 125, suspect mildly symptomatic
HYponatremia suspect from HCTZ+recent SSRI, NSAIDs use, U osmo 312, u na low at 11
she seem euvolemic with stable BP
sodium improved iwth 3% saline
normal TSH
repalced k
fluids restriction 48ounces/day
no further SSRI or HCTZ
if sodium stable plan d/c in am
d/w pt and primary
-
-
Date of Service: March 06, 2024
CC / HPI / ROS
-
Chief Complaint:
Hyponatremia
History of Present Illness:
sodium improving to 130
BP stable
no fever
Review of Systems:
no cp or sob
dizziness improved
Labs
-
Labs:
WBC 6.6 10^3/uL (4.8-10.8) 03/06/24 05:19
RBC 4.59 10^6/uL (4.20-5.40) 03/06/24 05:19
Hgb 14.1 g/dL (12.0-16.0) 03/06/24 05:19
Hct 39.0 % (37.0-47.0) 03/06/24 05:19
Plt Count 299 10^3/uL (130-400) 03/06/24 05:19
Sodium 130 mmol/L (135-145) L 03/06/24 05:19
Potassium 3.8 mmol/L (3.5-5.1) D 03/06/24 05:19
Chloride 98 mmol/L (98-107) 03/06/24 05:19
Carbon Dioxide 27 mmol/L (22-30) 03/06/24 05:19
BUN 15 mg/dl (7-17) 03/06/24 05:19
Creatinine 0.6 mg/dL (0.6-1.0) 03/06/24 05:19
eGFR > 60.00 03/06/24 05:19
Glucose 83 mg/dl (70-99) 03/06/24 05:19
Calcium 9.2 mg/dl (8.4-10.2) 03/06/24 05:19
Albumin 4.5 g/dl (3.5-5.0) 03/05/24 14:40
Physical Exam
-
Vital Signs:
Vital Signs
Temp Pulse Resp BP Pulse Ox
98.2 F 75 16 138/76 94
03/06/24 11:00 03/06/24 11:00 03/06/24 11:00 03/06/24 11:00 03/06/24 11:00
Cardiovascular:: Regular rate and rhythm
Respiratory:: Bilateral: CTA
Lung Excursion:: Normal
Abdomen:: Nontender and Soft
Extremity Edema:: None: Bilateral:
Hicks Catheter: No
--- NOTE | 2024-03-06 13:31 | W.PN.HOSP.TC ---
Today's Communication/Plan
-
repeat sodium in evening and next AM
continue OFR
stop HCTZ/Lexapro
PT/OT
Assessment / Plan
Assessment / Plan
Assessment:
symptomatic acute on chronic Hyponatremia
- possibly related to SSRI, HCTZ combo
- s/p 3% saline
- Na 130
- repeat 5pm and AM
- continue OFR
- stop HCTZ/SSRI at discharge
- Nephrology following
Recent UTI
Underlying overactive bladder
Hx of interstitial cystitis
- treated with Macrobid; was to complete course today
- repeat UA and culture here while holding Abx
- hold Myrbetriq
Essential HTN
- hold HCTZ
- continue CRYSTAL
Hypothyroidism
- TSH 1.56
- continue LT4 replacement
Anxiety/Depression
- ok for Xanax prn
- continue Buspar q48h until re-evaluated outpatient
- stop Lexapro
Glaucoma - continue home eye drops
DVT ppx: Lovenox
Code: Full
Anticipated Discharge: 24 - 48 hours
Subjective/Interval History
-
Date of Service: March 06, 2024
feeling improved, denies any new complaints
Objective Data
-
Labs:
Laboratory Results
03/06/24 03/06/24
01:05 05:19
WBC 6.6
Hgb 14.1
Hct 39.0
Plt Count 299
Sodium 127 L 130 L
Potassium 2.9 L 3.8 D
Chloride 94 L 98
Carbon Dioxide 28 27
BUN 16 15
Creatinine 0.6 0.6
Glucose 95 83
Calcium 9.3 9.2
Vital Signs:
Vital Signs
Temp Pulse Resp BP Pulse Ox
98.2 F 75 16 138/76 94
03/06/24 11:00 03/06/24 11:00 03/06/24 11:00 03/06/24 11:00 03/06/24 11:00
I&O
03/05/24 03/06/24 03/07/24
06:59 06:59 06:59
Intake Total 720 / 720
Output Total 600 / 600
Balance 120 / 120
Physical Exam
-
General: No Apparent Distress
HEENT: Normocephalic and Atraumatic
Respiratory: Negative Wheezes or Rales
Cardiac: Regular Rhythm and S1/S2
GI: Soft and Nontender
Genito-urinary: No Costovertebral Tender
Neuro: AO x 3
Hematologic / Lymphatic: No Lymphadenopathy
Psych: Calm
Data Reviewed
-
Total Time Spent with Patient (in minutes): 42
Labs: Labs Reviewed by me
[2024-03-06] MEDS: LOVENOX 40 MG SC (17:01)
[2024-03-06 17:30] LABS: Sodium 133 mmol/L (135-145)
[2024-03-06] MEDS: TYLENOL 650 MG PO (21:48)
[2024-03-07 03:20] VITALS: BP 146/80
[2024-03-07 06:00] VITALS: BMI 22.5
[2024-03-07 07:00] VITALS: BP 154/63
[2024-03-07] MEDS: COSOPT EYE DROPS 1 DROP LEFT EYE (08:16)
[2024-03-07] MEDS: VITAMIN D3 (cholecalciferol) 25 MCG PO (08:16)
[2024-03-07] MEDS: ALPHAGAN P 0.1% EYE DROPS 1 DROP LEFT EYE (08:16)
[2024-03-07] MEDS: FIBERCON 625 MG PO (08:16)
[2024-03-07] MEDS: DETROL LA 2 MG PO (08:17)
[2024-03-07 09:50] LABS: Blood Urea Nitrogen 16 mg/dl (7-17); Carbon Dioxide 26 mmol/L (22-30); Chloride 98 mmol/L (98-107); Estimated Creatinine Clearance 48 ml/min; Glucose 172 mg/dl (70-99); Potassium 3.6 mmol/L (3.5-5.1); Sodium 134 mmol/L (135-145); eGFR > 60.00
[2024-03-07 11:00] VITALS: BP 146/72
--- NOTE | 2024-03-07 11:34 | PN.CDI ---
CDI
- -
CDI:
Physician Documentation Request
Admit Date: 03/05/24 18:31
Dear Doctor Boone,
Please review the following and provide your response in the progress notes.
Clinical Indicators:
Pt admitted with Hyponatremia
Documented per update note 03/06 @ 0205, ' K 2.9, kcl 40 mEq PO x1 ordered. ...'
Based on the above, could you clarify in the progress notes, the appropriate diagnosis, if significant, that supports the above abnormalities and additional evaluation, monitoring and/or treatment rendered:
Hypokalemia
Abnormal lab value only
Other
Use of terms such as suspected, likely, concern for, or probable (associated with a specific diagnosis that is being evaluated, monitored, or treated as if it exists) are acceptable and can be coded in the inpatient setting, when documented at the
time of discharge.
Thank you,
Telma Patel RN
CDI Specialist
[place] [facility]
Please use your independent medical judgment in providing your response.
--- NOTE | 2024-03-07 11:36 | PN.CDI ---
CDI
- -
CDI:
Physician Documentation Request
Admit Date: 03/05/24 18:31
Dear Doctor Boone,
Please review the following and provide your response in the progress notes.
Clinical Indicators:
Pt admitted with symptomatic acute on chronic Hyponatremia possibly related to SSRI, HCTZ combo
Pt has been on 3 % saline/Fluid Restrict and following NA levels
Nephrology note 03/06,' Hyponatremia suspect from HCTZ+recent SSRI, NSAIDs use, U osmo 312, u na low at 11she seem euvolemic with stable BP ...'
03/05/24 03/06/24
14:40 00:43
Serum Osmolality 273 L
Urine Osmolality 312
Urine Sodium 11 L 34
Please provide the suspected Etiology of the documented Hyponatremia::
SIADH
Hyponatremia only due to SSRI/HCTZ only
Other
Use of terms such as suspected, likely, concern for, or probable (associated with a specific diagnosis that is being evaluated, monitored, or treated as if it exists) are acceptable and can be coded in the inpatient setting, when documented at the
time of discharge.
Thank you,
Telma Patel RN
CDI Specialist
[place] [facility]
Please use your independent medical judgment in providing your response.
--- NOTE | 2024-03-07 11:42 | W.PN.HOSP.TC ---
Addendum entered and electronically signed by Tavares Shook MD 03/07/24 11:53:
Hyponatremia only due to SSRI/HCTZ only
Hypokalemia
Original Note:
Today's Communication/Plan
-
dc to home today
Assessment / Plan
Assessment / Plan
Assessment:
symptomatic acute on chronic Hyponatremia
- possibly related to SSRI, HCTZ combo
- s/p 3% saline
- Na 130
- repeat Na 134 - repeat in 1 week with PCP f/u
- continue OFR
- stop HCTZ/SSRI at discharge
- appreciate Nephrology
Recent UTI
Underlying overactive bladder
Hx of interstitial cystitis
- completed macrobid course and repeat culture low oscra, mixed
- resume Myrbetriq
Essential HTN
- hold HCTZ
- continue CRYSTAL; repeat BP check next week with PCP
Hypothyroidism
- TSH 1.56
- continue LT4 replacement
Anxiety/Depression
- ok for Xanax prn
- continue Buspar q48h until re-evaluated outpatient
- stop Lexapro
- re-evaluate with PCP and/or psych outpatient. Will benefit from therapy
Glaucoma - continue home eye drops
DVT ppx: Lovenox
Code: Full
More than 30 minutes spent in discharge including
Final examination of the patient
Summarizing hospital stay
Instructions for continuing care to all relevant caregivers
Preparation of discharge records, prescriptions, and referral forms
Total time spent (in minutes): 42
Anticipated Discharge: Today
Subjective/Interval History
-
Date of Service: March 07, 2024
remains anxious but otherwise ready for DC, NA 134
Objective Data
-
Labs:
Laboratory Results
03/07/24
09:04
Sodium 134 L
Potassium 3.6
Chloride 98
Carbon Dioxide 26
BUN 16
Creatinine 0.8
Glucose 172 H
Calcium 10.0
Vital Signs:
Vital Signs
Temp Pulse Resp BP Pulse Ox
97.8 F 62 18 146/72 96
03/07/24 11:00 03/07/24 11:00 03/07/24 11:00 03/07/24 11:00 03/07/24 11:00
I&O
03/06/24 03/07/24 03/08/24
06:59 06:59 06:59
Intake Total 720 / 720 360 / 360 480 / 480
Output Total 600 / 600 100 / 100
Balance 120 / 120 260 / 260 480 / 480
Physical Exam
-
General: No Apparent Distress
HEENT: Normocephalic and Atraumatic
Respiratory: Negative Wheezes or Rales
Cardiac: Regular Rhythm and S1/S2
GI: Soft and Nontender
Musculoskeletal: No Edema
Neuro: AO x 3
Psych: Calm
Data Reviewed
-
Total Time Spent with Patient (in minutes): 42
Labs: Labs Reviewed by me
--- NOTE | 2024-03-07 11:52 | W.DS.TRANS ---
DC Summary - [employer]
-
Discharge Instructions:
Discharge Diagnosis/Procedures symptomatic acute hyponatremia
Diet Regular,Restrict fluids to 64 oz
Activity As tolerated
Bathing Restrictions None
Blood Work BMP next week - script given
Instructions:
Stand-Alone Forms:
Changes to Home Medications: Yes
Discharge Medications:
DC Medications w/original date entered in [facility]
dorzolamide-timolol (PF) 2 %-0.5 % eye drops in a dropperette (Cosopt (PF)) 1 drp LEFT EYE BID Eye Condition 07/03/13
levothyroxine 75 mcg tablet 75 mcg PO HS Thyroid 04/11/20
bimatoprost 0.01 % eye drops (Lumigan) 1 drp BOTH EYES QPM Eye Condition 04/03/23
cholecalciferol (vitamin D3) 25 mcg (1,000 unit) tablet (Vitamin D3) 25 mcg PO DAILY Supplement ##0 04/03/23
elderberry fruit 350 mg capsule 350 mg PO DAILY Supplement ##0 04/03/23
magnesium malate, chelate 250 mg PO DAILY Supplement ##0 04/03/23
turmeric 400 mg capsule 400 mg PO DAILY Supplement ##0 04/03/23
aloe vera 25 mg capsule 25 mg PO DAILY Supplement 03/05/24
alprazolam 0.25 mg tablet (Xanax) 0.25 mg PO HSPRN PRN sleep 03/05/24
brimonidine 0.1 % eye drops 1 drp LEFT EYE BID Eye Condition 03/05/24
buspirone 10 mg tablet 10 mg PO Q48H Mental Health/Anxiety 03/05/24
estradiol 0.01% (0.1 mg/gram) vaginal cream (Estrace) 1 appful vaginal TUSA Hormonal Agent 03/05/24
mirabegron 25 mg tablet,extended release 24 hr (Myrbetriq) 25 mg PO DAILY Urinary Issue 03/05/24
phenazopyridine 200 mg tablet 200 mg PO TIDPRN PRN uti 03/05/24
polyethylene glycol 3350 17 gram oral powder packet (Miralax) 17 g PO HS Constipation 03/05/24
lisinopril 20 mg tablet 20 mg PO DAILY #30 tabs 03/07/24
Home Medication Changes
stop HCTZ/Lisinopril combo pill (Lisinopril sent separately to pharmacy)
Lexapro stopped
Pending Results: No
Total time spent discharging patient (in min): 42
--- NOTE | 2024-03-07 13:28 | CM ---
Met with patient and at the bedside; initial assessment completed
[place]arm[place] [facility] [facility] [place] a [place] home w/[place]ement; steps to enter 5; steps down to basement 13; inside and outside railings present. Bathroom has tub w/shower
PLOF: patient reported that she needs some assistance with ADLs; able to feed and dress herself; independent with ambulation and stairs; drives; retired
SNF/Rehab/Home Health utilization history: none
Transportation: will transport home
Plan: discharge to home today without services
== END 2024-03-07 13:37 | disposition home or self-care (01) | DRG 641 ==
LOC: 3 WEST ACU 18:31
PROVIDERS: Emergency Medicine; Physician Assistant Medical; ADMITTING PHYSICIAN Internal Medicine; CONSULT PHYSICIAN Internal Medicine; EMERGENCY PHYSICIAN Emergency Medicine; FAMILY PHYSICIAN Family Medicine
DX: E87.1 Hypo-osmolality and hyponatremia (principal); I10 Essential (primary) hypertension; E03.9 Hypothyroidism, unspecified; F41.1 Generalized anxiety disorder; F32.A Depression, unspecified; H40.9 Unspecified glaucoma; E87.6 Hypokalemia; N30.10 Interstitial cystitis (chronic) without hematuria
CPT/HCPCS: 80048; 80053; 81003; 81015; 83930; 83935; 84295; 84300; 84443; 84550; 85025; 85027; 87086; 96360; 97116; 97161; 99284

== ENCOUNTER → 2024-03-12 07:31 | Outpatient (REF) | payer OTHER, SELFPAY ==
[2024-03-12 10:15] LABS: Blood Urea Nitrogen 21 mg/dl (7-17); Carbon Dioxide 30 mmol/L (22-30); Chloride 102 mmol/L (98-107); Glucose 96 mg/dl (70-99); Sodium 141 mmol/L (135-145); eGFR > 60.00
== END ==
LOC: REG 07:31
PROVIDERS: ATTENDING PHYSICIAN Internal Medicine; FAMILY PHYSICIAN Family Medicine
DX: E87.1 Hypo-osmolality and hyponatremia (principal)
CPT/HCPCS: 36415; 80048

== ENCOUNTER → 2024-03-19 15:09 | Outpatient (REF) | payer OTHER, SELFPAY ==
[2024-03-19 15:47] LABS: Sodium 138 mmol/L (135-145)
== END ==
LOC: REG 15:09
PROVIDERS: ATTENDING PHYSICIAN Family Medicine
DX: E87.1 Hypo-osmolality and hyponatremia (principal)
CPT/HCPCS: 36415; 84295

== ENCOUNTER 2024-04-01 05:52 | Emergency (ER) | payer OTHER, SELFPAY ==
[2024-04-01 05:54] VITALS: BP 136/70
[2024-04-01 06:31] LABS: % Basophils 0.8 % (0-2); % Eosinophils 1.2 % (0-6); % Immature Granulocytes 0.2 % (0-0.5); % Lymphocytes 29.9 % (20.5-51.1); % Monocytes 7.7 % (1.7-9.3); % Neutrophils 60.2 % (42.2-75.2); Absolute Eosinophils 0.1 10^3/uL (0-0.7); Absolute Lymphocytes 1.5 10^3/uL (1.2-3.4); Absolute Monocytes 0.4 10^3/uL (0.1-0.6); Hematocrit 40.3 % (37.0-47.0); Hemoglobin 14.9 g/dL (12.0-16.0); Mean Corpuscular Volume 86.7 fL (81.0-99.0); Mean Platelet Volume 9.7 fL (7.4-10.4); Nucleated Red Blood Cells % 0 %; Platelet Count 334 10^3/uL (130-400); Red Blood Cell Count 4.65 10^6/uL (4.20-5.40); Red Cell Dist. Width 12.8 % (11.5-14.5)
[2024-04-01 06:46] LABS: ALT (SGPT) 25 U/L (0-35); AST (SGOT) 24 U/L (14-36); Albumin 4.3 g/dl (3.5-5.0); Alkaline Phosphatase 72 U/L (38-126); Blood Urea Nitrogen 20 mg/dl (7-17); Calcium 9.8 mg/dl (8.4-10.2); Carbon Dioxide 27 mmol/L (22-30); Chloride 104 mmol/L (98-107); Glucose 98 mg/dl (70-99); Sodium 141 mmol/L (135-145); Total Bilirubin 0.7 mg/dl (0.2-1.3); Total Protein 6.9 g/dl (6.3-8.2); eGFR > 60.00
--- NOTE | 2024-04-01 14:10 | ED.GENMED ---
History of Present Illness
General
Chief Complaint: Weakness
Source: patient
Exam Limitations: none
Time Seen by Provider: 04/01/24 13:00
Nursing documentation reviewed up to this point in time: agreed with
Travel History
Have you had any contact with someone who has COVID-19?: No
Do you have any symptoms of coronavirus? Fever > 100 degrees, chills, cough, shortness of breath, sore throat, loss of taste or smell, muscle aches, or headache?: No
History of Present Illness
History of Present Illness:
73 y/o F with h/o anxiety, hypothyroid, intersitial cystitis, depressionj, htn, hyponatremia
here with symptoms of nauea, faituge, generalized weakness and shakiness at 4 am when she woke up. she has had the fatigue for little while, maybe a month or so; but she was reminded of when she was hyponatrmiec previously and wanted to get checked
to be sure she wasn't
recently she got diagnosed with I.C. and since she has had a lot fo stress and anxiety
she used a rectal valium suppository for her I.C. last night which she has used several times over month
and 1 other time she felt shaky like this but other times she tolerated the medication ok
the IC has been hard for her.
she avoids certain foods because of the IC diet and feels that she has lost 10 pounds or so
she recently was told that some of her anxiety could be from her thyroid being over treated so she was told to back down on the dose and drop one day a week which she has done
she also used to take her thyroid med at night and now she takes in the day and thks she has been eating with it as well
she also felt that over the past 4 days she has had a mild chest discomfort where she feels that she has to stretch her chest wall to feel relief
it is not exertional
Past History
Past History
ED Past Medical History: HTN, Hypercholesterolemia, Hypothyroidism and Psychiatric
ED Past Surgical History: Cholecystectomy, Gynecological (hysterectomy) and Other
Social History
Tobacco: Non-smoker
Alcohol: None
Drug: None
Personal:
Living: with family
Phy Exam
Physical Exam
Physical Exam:
GENERAL: Alert , in no apparent distress, awake and alert, no fatigue
EYE: pupils equal and reactive
NECK: Supple
ENT: o/p clr, mmm.
CARDIAC: Regular rate and rhythm . No edema
LUNGS: Clear breath sounds bilaterally, no acute respiratory distress, no wheezes/rales/rhonchi
ABDOMEN: Soft, without focal tenderness, no r/g, no cvat, normal bowel sounds, nontender
NEUROLOGICAL: Alert and oriented, no focal neuro deficits
SKIN: Warm and dry, skin intact.
MUSCULOSKELETAL: No edema, well perfused. neg roslyn's sign
PSYCH: Normal and appropriate interaction.
Course
Orders/Labs/Results
Orders:
Orders
04/01/24 05:56
ECG [Electrocardiogram (*1)] Urgent
Reason for Study: Fatigue / Weakness
04/01/24 05:57
EKG- Treatment ONCE
04/01/24 06:15
Complete Blood Count/With Diff Urgent
Comprehensive Metabolic Panel Urgent
Free T4 Urgent
Comment: ADD
TSH Urgent
Comment: ADD ON
04/01/24 06:16
Add On- LAB Urgent
Tests Added?: TSH
04/01/24 12:59
Add On- LAB Urgent
Tests Added?: free t4
04/01/24 14:03
Electrocardiogram (*1) Urgent
Reason for Study: Fatigue / Weakness
EKG- Treatment ONCE
04/01/24 14:35
Lactic Acid Urgent
Troponin I Urgent
Urinalysis Reflex To Culture Urgent
Date Specimen was Collected: 04/01/24
Time Specimen was Collected: 14:22
Urine Microscopic Reflex Cult Urgent
Urine Culture Urgent
DOM Source: U
Specimen Description:
Date Specimen was Collected: 04/01/24
Time Specimen was Collected: 14:22
04/01/24 15:39
Vital Signs- Treatment ONCE
Frequency: Once
Abnormal Lab Results
04/01/24 04/01/24
06:15 14:35
MCH 32.0 H pg
(27.0-31.0)
BUN 20 H mg/dl
(7-17)
TSH 17.10 H uIU/ml
(0.47-4.68)
Urine Ketones 1+ A
(Negative)
Ur Occult Blood Reflex 3+ A
(Negative)
Leukocyte Esterase Rfl Trace A
(Negative)
Urine RBC 7-10 A /HPF
(0-2)
Urine WBC (Reflex) 11-15 A /HPF
(0-5)
Urine Bacteria (Reflex) Few A
(Negative)
04/01/24 06:15
04/01/24 06:15
Vital Signs
Initial and Last Documented VS:
Initial Vital Signs
Temp Pulse Resp BP Pulse Ox
97.8 F 81 19 136/70 99
04/01/24 05:54 04/01/24 05:54 04/01/24 05:54 04/01/24 05:54 04/01/24 05:54
Last Documented Vital Signs
Temp Pulse Resp BP Pulse Ox
97.8 F 71 16 158/83 97
04/01/24 05:54 04/01/24 15:55 04/01/24 15:55 04/01/24 15:55 04/01/24 15:55
MDM/Problems Addressed
Differential Diagnosis Includes:
73 y/o F with h/o Intersitital cystitis, anxiety, depression, hypothyroid
here with generalized fatigue, nauesa and anxiety/shainess this morning at 4 a.m. not totally resolved by now. Patient said that she had a similar response when she used a rectal Valium suppository which she was given for her interstitial cystitis
which she has had over the last 1 to 2 months. Patient has been to pelvic floor therapy and has seen a urogynecologist. She is trying to follow a GERD diet for interstitial cystitis and is very overwhelmed and somewhat depressed because of the
changes that she has had to make and is frustrated by her ongoing symptoms. She did not have a fever or chills this morning and does not feel like she has any change to her urination which is typically frequent with some pelvic discomfort on 1
other occurrence she has had the similar symptoms and she attributed to the Valium but then she has had many doses of the Valium without problems. She is not really sure what is causing it but she has been hyponatremic before and she wanted to be
sure that was not occurring currently. On exam the patient is stable vital signs is awake and alert does not appear dehydrated, has no tenderness on exam, heart and lungs sound clear, she has a normal sodium. Normal CBC
her ua is contaminated and without new urine symptoms, unlikely to be clinically significant
her ekg shows subtle flattenign st seg which when compared to more remote previous ekg appears unchanged bu twith the sutble chest discomfort, checked trop and was neg
pt's TSH is 17, free t4 normal
previous tsh 1 mo ago was normal
october 2023 tsh is [address] moran who recommended she go back up to 75 mcg daily rather than dropping a day
pt will call for moving up her appt
add on lyme titer
suspect some of her sypmtoms are related to her anxiety and issues with the IC. but could be becaudes of hypothyroid
also is constipated chronically
retur npreautions.
*Critical Care Note
Total Time (30-74mins, 75-104mins- exclusive of procedures): Not Applicable
ED Attending Note
-
Portions of this chart may have been created with voice recognition software.� Occasional wrong word or��sound alike� substitutions may have occurred due to the inherent limitations of voice recognition software.
Discharge Plan
Departure
Patient Disposition: Home (Routine Discharge)
Date of Disposition: 04/01/24
Time of Disposition: 16:21
Patient with high blood pressure during this ER visit?: No
Condition: Fair
Covid-19: Not Applicable
Discharge Problem:
Hypothyroidism, Fatigue
Instructions: Hypothyroidism (underactive thyroid), Generalized Weakness (DC)
Prescriptions:
No Action
dorzolamide-timolol (PF) [Cosopt (PF)] 1 EACH dropperette
1 drp LEFT EYE BID
levothyroxine 75 MCG tablet
75 mcg PO HS
Lumigan 0.01 % Drops
1 drp BOTH EYES QPM
Rx Instructions:
8PM nightly
cholecalciferol (vitamin D3) [Vitamin D3] 25 mcg (1,000 unit) Tablet
25 mcg PO DAILY Qty: 0
turmeric 400 mg Capsule
400 mg PO DAILY Qty: 0
magnesium chelate, malate 125 mg magnesium Capsule
250 mg PO DAILY Qty: 0
elderberry fruit 350 mg Capsule
350 mg PO DAILY Qty: 0
alprazolam [Xanax] 0.25 mg tablet
0.25 mg PO HSPRN PRN (Reason: sleep)
phenazopyridine 200 mg tablet
200 mg PO TIDPRN PRN (Reason: uti)
buspirone 10 mg Tablet
10 mg PO Q48H
estradiol [Estrace] 0.01 % (0.1 mg/gram) Cream
1 appful VAGINAL TUSA
aloe vera 25 mg Capsule
25 mg PO DAILY
brimonidine 0.1 % drops
1 drp LEFT EYE BID
mirabegron [Myrbetriq] 25 mg Tablet Extended Release 24 Hr
25 mg PO DAILY
polyethylene glycol 3350 [Miralax] 17 gram Powder In Packet
17 g PO HS
Rx Instructions:
pt takes 1/2 packet at bedtime
lisinopril 20 mg tablet
20 mg PO DAILY Qty: 30 0RF
Referrals:
Antolin Garza MD [Family Provider] - Follow up in 2-3 days
Activity Restrictions/Additional Instructions:
We are not entirely sure the cause of your symptoms but your thyroid test is elevated and so we are going to have you go back to your 75 mcg of levothyroxine once a day. Make sure you are not eating for at least an hour when you take this.
Your urine had some blood and leukocytes in there but previously when you had that finding your cultures were negative so at this point were going to hold on antibiotics and we will wait for the culture to come back. Drink fluids as you have been
instructed with your interstitial cystitis diet. For your constipation you can use Metamucil which is more of a fiber supplement and stool softener. If you need to to use a dose of MiraLAX you can. This should not significantly lower your sodium
if you only take it here and there, it is more to do that if you were to take it and larger volumes like a bowel prep for colonoscopy or a regularly dosed medication.
Please follow-up with your family doctor and the collection advisor regarding your symptoms. Perhaps you need adrenal testing again. Return to the ER for any concerns.
Interventions
Interventions:
*Risk Screen - Suicide Last Done: 04/01/24 05:54
*General Assessment Last Done: 04/01/24 05:54
*Neglect/Abuse Screening Last Done: 04/01/24 05:54
ED- Fall Risk Assessment Last Done: 04/01/24 13:19
*ED COVID-19 Vaccine History Last Done: 04/01/24 05:54
*Nursing Disposition Last Done: 04/01/24 16:33
ED- Cardiac Assessment Last Done: 04/01/24 13:19
ED- Neurological Assessment Last Done: 04/01/24 13:19
ED- Pulmonary Assessment Last Done: 04/01/24 13:19
Discharge Date and Time
Discharge Date/Time: 04/01/24 17:01
Print Language: GEORGIAN
[2024-04-01 14:25] LABS: Free T4 1.24 ng/dl (0.78-2.19)
[2024-04-01 14:57] LABS: Lactic Acid 0.9 mmol/L (0.7-2.0)
[2024-04-01 15:09] LABS: Troponin I < 0.012 ng/ml
[2024-04-01 15:22] LABS: Urine Albumin Negative (Neg - Trace); Urine Bilirubin Negative (Negative); Urine Character Clear (Clear); Urine Color Amber; Urine Glucose Negative (Negative); Urine Ketone 1+ (Negative); Urine Leukocyte Trace (Negative); Urine Nitrite Negative (Negative); Urine Occult Blood 3+ (Negative); Urine Specific Gravity 1.015 (<1.030); Urine Urobilinogen Negative (Neg - 1+); Urine pH 6.5 (5.0-9.0)
[2024-04-01 15:55] VITALS: BP 158/83
[2024-04-01 16:16] LABS: Urine Bacteria Few (Negative); Urine Squamous Cell >30 /LPF (Few)
[2024-04-03 15:57] LABS: Lyme Antibody Screen, EIA Negative (Negative)
== END 2024-04-01 17:01 | disposition home or self-care (01) ==
LOC: EMR 05:52
PROVIDERS: Emergency Medicine; Physician Assistant; EMERGENCY PHYSICIAN Emergency Medicine; FAMILY PHYSICIAN Family Medicine
DX: E03.9 Hypothyroidism, unspecified (principal); R53.83 Other fatigue; I10 Essential (primary) hypertension; F41.9 Anxiety disorder, unspecified
CPT/HCPCS: 99284; 80053; 81003; 81015; 83605; 84439; 84443; 84484; 85025; 86618; 87086; 93005

== ENCOUNTER 2024-05-04 18:34 | Emergency (ER) | payer OTHER, SELFPAY ==
[2024-05-04 18:37] VITALS: BP 150/84
[2024-05-04 19:27] VITALS: BMI 21.4
--- NOTE | 2024-05-04 19:28 | EDRN ---
Pt says she has insomnia for 3 months. Pt says her doctor is trying a new combination of drugs to help her sleep - restoril and trazodone. First night pt slept 7 hours and felt alright next day. Second night pt slept 7 hour and last night pt
slept [id number] and says all day long she has had nausea, extreme fatigue, shakiness and her legs buckle when she stands up. Past few months pt has tried different medications with similar side effects but 'never as bad as this.' Pt called her
doctor today and says doctor thinks symptoms are more from insomnia than medications and told her to take medications again tonight. brought pt to ED because he says pt can't even walk down the hallway. Pt denies cp, sob, abd pain,
vomiting, fever/chills/cough, urinary symptoms.
--- NOTE | 2024-05-04 19:36 | ED.GENMED ---
History of Present Illness
General
Chief Complaint: Change Level of Consciousness
Time Seen by Provider: 05/04/24 19:36
History of Present Illness
History of Present Illness:
HPI: Patient presents with change in mental status. She chronically has insomnia. She has tried different regimens in the past. Most recently she started taking trazodone and Restoril 4 nights ago. 2 nights ago she took these pills again and
slept for 7 hours. Last night she took the medication and only slept for 5 hours and has not been able to go back to sleep since that time. She has trouble walking now with a sensation of weakness in the lower extremities. She feels somewhat
tremulous states that she has had low sodium in the past requiring hospitalization.
EXAM:
GENERAL: Well appearing in no distress but appears generally weak and debilitated
HEENT: Slightly dry oral mucosa
CARDIOVASCULAR: No murmurs, normal heart rate, regular rhythm, No chest wall tenderness
PULMONARY: No respiratory distress, breath sounds are clear and equal
ABDOMEN: Soft with no peritoneal signs, no tenderness
NEUROLOGIC: Fair strength all extremities, no coordination deficits, no significant tremor on exam
PSYCHIATRIC: Appropriate mental status, normal insight and judgement
EXTREMITIES: Nontender, no edema, moves all extremities equally
SKIN: No rash, no lesions
TIME OF INITIAL ENCOUNTER: 7:45 PM
NUMBER AND COMPLEXITY OF PROBLEMS ADDRESSED AT THE ENCOUNTER
� Chronic conditions affecting care: High blood pressure, hyperlipidemia, diverticular disease, has had UTI, hypothyroidism
� Acute Exacerbation and/or Progression of Chronic Illness: This is an acute problem
� Differential Diagnosis includes: Insomnia, hyponatremia, intracranial abnormality
AMOUNT AND/OR COMPLEXITY OF DATA TO BE REVIEWED AND ANALYZED
� I performed an independent evaluation of and my interpretation is:
EKG:
CT: CT head shows no acute abnormality
X-rays:
Laboratory Studies: TSH, chemistries including sodium unremarkable, CBC unremarkable
Other:
� Review of other/old records: The patient was admitted with hyponatremia 2 months ago
� Clinical information was obtained by an independent historian: I spoke to the bedside
� Prescriptions/Medications Considered but not given: I generally recommend against benzos or sedative hypnotics, I did suggest she try [id number] doxylamine
� Further testing considered but not performed:
RISK OF COMPLICATIONS AND/OR MORBIDITY OR MORTALITY OF PATIENT MANAGEMENT
� Social determinants of health affecting care: Lives at home
� Discussion with other providers:
� Escalation of care including admission/observation vs risk of discharge considered: Patient has had hyponatremia the past but currently sodium is 135, brain CT reassuring. Other basic labs unremarkable. Clear indication for
admission to the hospital. Suspect that her symptom including tremor are related to lack of sleep/insomnia.
Past History
Past History
ED Past Medical History: HTN, Hypercholesterolemia, Hypothyroidism and Psychiatric
ED Past Surgical History: Cholecystectomy, Gynecological (hysterectomy) and Other
Social History
Tobacco: Non-smoker
Alcohol: None
Drug: None
Personal:
Living: with family
Phy Exam
Physical Exam
Physical Exam:
See HPI
Course
Orders/Labs/Results
Orders:
Orders
05/04/24 19:44
Complete Blood Count/With Diff Urgent
Comprehensive Metabolic Panel Urgent
Magnesium Urgent
TSH Reflex To Free T4 Urgent
05/04/24 19:50
CT Head W/o Iv Contrast Urgent
Comment:
Reason For Exam: acute gait dysfunction
Abnormal Lab Results
05/04/24
19:44
MCH 31.5 H pg
(27.0-31.0)
Absolute Monos (auto) 0.7 H 10^3/uL
(0.1-0.6)
Monocytes % 9.6 H %
(1.7-9.3)
BUN 20 H mg/dl
(7-17)
05/04/24 19:44
05/04/24 19:44
Vital Signs
Initial and Last Documented VS:
Initial Vital Signs
Temp Pulse Resp BP Pulse Ox
97.8 F 80 18 150/84 97
05/04/24 18:37 05/04/24 18:37 05/04/24 18:37 05/04/24 18:37 05/04/24 18:37
Last Documented Vital Signs
Temp Pulse Resp BP Pulse Ox
97.8 F 66 14 153/62 97
05/04/24 18:37 05/04/24 21:00 05/04/24 21:00 05/04/24 21:00 05/04/24 18:37
*Critical Care Note
Total Time (30-74mins, 75-104mins- exclusive of procedures): Not Applicable
ED Attending Note
-
Portions of this chart may have been created with voice recognition software.� Occasional wrong word or��sound alike� substitutions may have occurred due to the inherent limitations of voice recognition software.
Discharge Plan
Departure
Patient Disposition: Home (Routine Discharge)
Date of Disposition: 05/04/24
Time of Disposition: 21:17
Patient with high blood pressure during this ER visit?: Yes
Discharge Problem:
Insomnia
Instructions: Insomnia, Good sleep hygiene
Prescriptions:
No Action
dorzolamide-timolol (PF) [Cosopt (PF)] 1 EACH dropperette
1 drp LEFT EYE BID
levothyroxine 75 MCG tablet
75 mcg PO DAILY
Lumigan 0.01 % Drops
1 drp BOTH EYES QPM
cholecalciferol (vitamin D3) [Vitamin D3] 25 mcg (1,000 unit) Tablet
25 mcg PO DAILY Qty: 0
phenazopyridine 200 mg tablet
200 mg PO TIDPRN PRN (Reason: uti)
estradiol [Estrace] 0.01 % (0.1 mg/gram) Cream
1 appful VAGINAL TUSA
polyethylene glycol 3350 [Miralax] 17 gram Powder In Packet
8.5 - 17 g PO HS
lisinopril 20 mg tablet
20 mg PO DAILY Qty: 30 0RF
multivitamin Tablet
1 tab PO DAILY
trazodone 50 mg Tablet
25 mg PO HS PRN (Reason: insomnia)
temazepam [Restoril] 15 mg Capsule
15 mg PO HS PRN (Reason: insomnia)
magnesium 250 mg Tablet
250 mg PO DAILY
cyanocobalamin (vitamin B-12)
1 tab PO DAILY
Patient Comments:
pt does not know dose
sertraline 25 mg Tablet
25 mg PO DAILY
Referrals:
Antolin Garza MD [Family Provider] -
Activity Restrictions/Additional Instructions:
Basic blood work including sodium level is normal. Thyroid testing is normal. CAT scan of the brain is unremarkable. Since you are only taking half of a 50 mg trazodone tablet, I think would be reasonable to try a full 50 mg trazodone tablet and
see if you tolerate this. You could also try [id number] doxylamine (Unisom). Follow-up with your primary care doctor.
Interventions
Interventions:
*Risk Screen - Suicide Last Done: 05/04/24 19:27
*General Assessment Last Done: 05/04/24 19:27
*Neglect/Abuse Screening Last Done: 05/04/24 19:27
ED- Fall Risk Assessment Last Done: 05/04/24 19:53
*ED COVID-19 Vaccine History Last Done: 05/04/24 19:20
ED- Cardiac Assessment Last Done: 05/04/24 19:53
ED- Neurological Assessment Last Done: 05/04/24 19:53
ED- Pulmonary Assessment Last Done: 05/04/24 19:53
Discharge Date and Time
Print Language: KITTITIAN
[2024-05-04 19:49] VITALS: BP 168/68
[2024-05-04 19:56] LABS: % Basophils 0.7 % (0-2); % Eosinophils 1.2 % (0-6); % Immature Granulocytes 0.3 % (0-0.5); % Lymphocytes 24.5 % (20.5-51.1); % Monocytes 9.6 % (1.7-9.3); % Neutrophils 63.7 % (42.2-75.2); Absolute Basophils 0.1 10^3/uL (0-0.2); Absolute Eosinophils 0.1 10^3/uL (0-0.7); Absolute Lymphocytes 1.8 10^3/uL (1.2-3.4); Absolute Monocytes 0.7 10^3/uL (0.1-0.6); Absolute Neutrophils 4.8 10^3/uL (1.4-6.5); Hematocrit 37.3 % (37.0-47.0); Hemoglobin 13.8 g/dL (12.0-16.0); Mean Corpuscular Hgb 31.5 pg (27.0-31.0); Mean Corpuscular Volume 85.2 fL (81.0-99.0); Mean Platelet Volume 9.7 fL (7.4-10.4); Nucleated Red Blood Cells % 0 %; Platelet Count 334 10^3/uL (130-400); Red Blood Cell Count 4.38 10^6/uL (4.20-5.40); Red Cell Dist. Width 12.9 % (11.5-14.5); White Blood Cell Count 7.5 10^3/uL (4.8-10.8)
[2024-05-04 20:00] VITALS: BP 166/65
[2024-05-04 20:09] LABS: ALT (SGPT) 20 U/L (0-35); AST (SGOT) 22 U/L (14-36); Albumin 4.2 g/dl (3.5-5.0); Alkaline Phosphatase 71 U/L (38-126); Blood Urea Nitrogen 20 mg/dl (7-17); Calcium 9.7 mg/dl (8.4-10.2); Carbon Dioxide 25 mmol/L (22-30); Chloride 103 mmol/L (98-107); Estimated Creatinine Clearance 66 ml/min; Glucose 98 mg/dl (70-99); Magnesium 1.9 mg/dl (1.6-2.3); Potassium 3.5 mmol/L (3.5-5.1); Sodium 135 mmol/L (135-145); Total Protein 6.5 g/dl (6.3-8.2); eGFR > 60.00
[2024-05-04 20:39] LABS: TSH Reflex To Free T4 3.02 uIU/ml (0.47-4.68)
[2024-05-04 21:00] VITALS: BP 153/62
== END 2024-05-04 21:37 | disposition home or self-care (01) ==
LOC: EMR 18:34
PROVIDERS: EMERGENCY PHYSICIAN Emergency Medicine; FAMILY PHYSICIAN Family Medicine
DX: G47.00 Insomnia, unspecified (principal); E03.9 Hypothyroidism, unspecified; E78.00 Pure hypercholesterolemia, unspecified; I10 Essential (primary) hypertension; Z90.710 Acquired absence of both cervix and uterus
CPT/HCPCS: 99284; 70450; 80053; 83735; 84443; 85025; 99285

== ENCOUNTER → 2024-09-02 18:19 | Outpatient (REF) | payer OTHER, SELFPAY | LOC: WDC 18:19 | PROVIDERS: ATTENDING PHYSICIAN Nurse Practitioner Family | DX: Z12.31 Encounter for screening mammogram for malignant neoplasm of breast (principal) | CPT/HCPCS: 77063; 77067 ==